=== PATIENT | female | born 1965 | race African-American/Black ===

== ENCOUNTER 2018-12-24 06:47 | Day surgery (SDC) | payer BC, OTHER ==
[~2018-12-24] VITALS: Ht 167.6 cm; Wt 85.6 kg
[2018-12-24 07:49] VITALS: Ht 167.6 cm; Wt 85.6 kg
[2018-12-24] MEDS ORDERED: METOPROLOL PO (07:59)
[2018-12-24 08:17] VITALS: BP 145/78; PULSE 55; RESP 16
[2018-12-24] MEDS ORDERED: LIDOCAINE 4% SOLUTION 50 ML BTL ONE (08:48)
[2018-12-24] MEDS ORDERED: MIDAZOLAM 1 MG/ML 2 ML INJ ONE ×3 (10:02→10:03)
[2018-12-24] MEDS ORDERED: FENTAnyl 50 MCG/ML VIAL ONE ×2 (10:03)
[2018-12-24 10:19] VITALS: BP 132/63; PULSE 56; RESP 14
== END 2018-12-24 14:03 | disposition home or self-care (01) ==
LOC: GIL 06:47
PROVIDERS: ATTEND Internal Medicine Gastroenterology
DX: D12.0 Benign neoplasm of cecum (principal); D12.3 Benign neoplasm of transverse colon; K29.80 Duodenitis without bleeding; K25.9 Gastric ulcer, unspecified as acute or chronic, without hemorrhage or perforation; K29.70 Gastritis, unspecified, without bleeding
CPT/HCPCS: 43239; 45385; 88307; 88312; J2250; J3010; Z7610

== ENCOUNTER 2019-08-31 07:47 | Day surgery (SDC) | payer OTHER ==
[~2019-08-31] VITALS: Ht 167.6 cm; Wt 84.8 kg
[~2019-08-31 07:47] MED LIST: METOPROLOL PO; omeprazole; vitamin d2
[2019-08-31 08:53] VITALS: Ht 167.6 cm; Wt 84.8 kg
[2019-08-31 10:16] VITALS: BP 187/87; PULSE 56; RESP 15
[2019-08-31] MEDS ORDERED: METHYLENE BLUE 1% 10 ML INJ IV STA (10:33)
[2019-08-31 12:00] VITALS: BP 169/93; PULSE 63; RESP 13
[2019-08-31] MEDS ORDERED: FENTAnyl 50 MCG/ML VIAL ONE (12:03)
[2019-08-31] MEDS ORDERED: MIDAZOLAM 1 MG/ML 2 ML INJ ONE ×2 (12:03)
[2019-08-31] MEDS ORDERED: EPINEPHrine 0.1 MG/ML SYG ONE (12:03)
== END 2019-08-31 14:21 | disposition home or self-care (01) ==
LOC: GIL 07:47
PROVIDERS: ATTEND Internal Medicine Gastroenterology
DX: D12.3 Benign neoplasm of transverse colon (principal); D12.4 Benign neoplasm of descending colon
CPT/HCPCS: 45385; 88305; J0171; J2250; J3010; Z7610